=== PATIENT | male | born 1995 | race Caucasian/White ===

== ENCOUNTER 2018-02-12 21:23 | Emergency (ER) | payer OTHER ==
[2018-02-12] MEDS: DERMABOND TOPICAL SKIN ADHESIVE TOP (22:06)
== END 2018-02-12 22:14 | disposition home or self-care (01) ==
LOC: M ED 21:23
DX: S51.819A Laceration without foreign body of unspecified forearm, initial encounter (principal); W22.8XXA Striking against or struck by other objects, initial encounter; Y92.89 Other specified places as the place of occurrence of the external cause
CPT/HCPCS: 12004